=== PATIENT | female | born 1990 | race African-American/Black ===

== ENCOUNTER 2023-11-01 19:24 | Emergency (ER) | payer MEDICAID, OTHER ==
[2023-11-01 19:46] LABS: BASOPHILS PERCENT AUTO 0.3 % (0.0-1.0); EOSINOPHILS PERCENT AUTO 0.5 % (1.0-3.0); HEMATOCRIT 37.7 % (37.0-47.0); HEMOGLOBIN 12.3 g/dL (12.0-16.0); LYMPHOCYTES PERCENT AUTO 40.5 % (20.5-50.1); MEAN CORPUSCULAR HGB CONC 32.6 g/dL (33.0-35.0); MONOCYTES PERCENT AUTO 7.5 % (2-8); NEUTROPHILS PERCENT AUTO 51.2 % (42.2-75.2); PLATELET COUNT,PLT 381 10^3/uL (150-450); WHITE BLOOD CELL COUNT,WBC 11.1 10^3/uL (5.0-10.0)
[2023-11-01] MEDS: Ketorolac 30 MG/ML SDV IVPUSH ONE (19:52)
[2023-11-01 20:04] LABS: A/G RATIO 1.1; ALBUMIN 3.8 g/dL (3.4-5.0); ANION GAP 10.6 mEq/L (7-13); BILIRUBIN TOTAL 0.3 mg/dL (0.2-1.0); BUN/CREATININE RATIO 17.9 (No establ ref range); CALCIUM 8.3 mg/dL (8.5-10.1); CREATININE 0.84 mg/dL (0.55-1.02); EST CRCL DRUG DOSING (CG) 101.41 mL/min; POTASSIUM,K 3.6 mmol/L (3.5-5.1); PROTEIN TOTAL,TP 7.3 g/dL (6.4-8.2)
[2023-11-01] MEDS: LORazepam 1 MG Tab PO ONE (20:28)
== END 2023-11-01 20:40 | disposition home or self-care (01) ==
LOC: DL.ED 19:24
DX: R07.89 Other chest pain (principal); Z88.6 Allergy status to analgesic agent; Z79.899 Other long term (current) drug therapy; Z86.19 Personal history of other infectious and parasitic diseases; Z90.49 Acquired absence of other specified parts of digestive tract; V49.40XA Driver injured in collision with unspecified motor vehicles in traffic accident, initial encounter
CPT/HCPCS: 36415; 71045; 80053; 84484; 85025; 96374; 99285; A9270; J1885

== ENCOUNTER 2023-12-03 10:45 | Emergency (ER) | payer MEDICAID | END 2023-12-03 10:54 | disposition home or self-care (01) | LOC: DL.ED 10:45 | DX: F41.9 Anxiety disorder, unspecified (principal); R19.7 Diarrhea, unspecified; R11.10 Vomiting, unspecified; Z88.6 Allergy status to analgesic agent; Z79.899 Other long term (current) drug therapy; Z86.19 Personal history of other infectious and parasitic diseases; Z90.49 Acquired absence of other specified parts of digestive tract | CPT/HCPCS: 99283; 99285 ==

== ENCOUNTER 2024-03-30 09:31 | Emergency (ER) | payer MEDICAID, OTHER ==
[2024-03-30 10:33] LABS: AMPHETAMINES,URINE POSITIVE (NEGATIVE); BARBITURATES,URINE NEGATIVE (NEGATIVE); BENZODIAZEPINE,URINE POSITIVE (NEGATIVE); MDMA (ECSTASY), URINE NEGATIVE (NEGATIVE); METHADONE,URINE NEGATIVE (NEGATIVE); METHAMPHETAMINES,URINE NEGATIVE (NEGATIVE); OPIATES,URINE NEGATIVE (NEGATIVE); OXYCODONE,URINE NEGATIVE (NEGATIVE); PHENCYCLIDINE,URINE NEGATIVE (NEGATIVE); TCA,URINE NEGATIVE (NEGATIVE)
[2024-03-30] MEDS: hydrOXYzine HCl 25 MG Tab PO ONE (10:44)
[2024-03-30] MEDS: Acetaminophen 500 MG Tab PO ONE (11:30)
== END 2024-03-30 11:55 | disposition home or self-care (01) ==
LOC: DL.ED 09:31
DX: F41.9 Anxiety disorder, unspecified (principal); R07.89 Other chest pain; Z88.6 Allergy status to analgesic agent; Z79.899 Other long term (current) drug therapy; Z90.49 Acquired absence of other specified parts of digestive tract
CPT/HCPCS: 71046; 80305-QW; 81025; 93005; 93010; 99284; 99285; A9270-GY

== ENCOUNTER 2024-05-10 18:47 | Emergency (ER) | payer MEDICAID ==
[2024-05-10] MEDS ORDERED: Sodium Chloride 0.9% 10 ML Syringe FLUSH PRN (19:27)
[2024-05-10] MEDS: Take Home: Ondansetron 4 MG Tab.DIS, 5 Tab Pack PO ONE (19:47)
[2024-05-10] MEDS: Ondansetron 4 MG/2 ML SDV IVPUSH ONE (19:53)
[2024-05-10] MEDS: Lactated Ringers 1,000 ML IV ONE (19:54)
[2024-05-10 19:56] LABS: BASOPHILS PERCENT AUTO 0.2 % (0.0-1.0); EOSINOPHILS PERCENT AUTO 0.7 % (1.0-3.0); HEMATOCRIT 35.5 % (37.0-47.0); HEMOGLOBIN 11.6 g/dL (12.0-16.0); MEAN CORPUSCULAR HEMOGLOBIN 29.9 pg (27.0-34.0); MEAN CORPUSCULAR HGB CONC 32.7 g/dL (33.0-35.0); MEAN CORPUSCULAR VOLUME 91.5 fL (80-100); NEUTROPHILS PERCENT AUTO 61.1 % (42.2-75.2); PLATELET COUNT,PLT 379 10^3/uL (150-450); RED BLOOD CELL COUNT 3.88 10^6/uL (4.2-5.4); WHITE BLOOD CELL COUNT,WBC 9.8 10^3/uL (5.0-10.0)
[2024-05-10 20:17] LABS: A/G RATIO 1.1; ALBUMIN 3.8 g/dL (3.4-5.0); ANION GAP 10.1 mEq/L (7-13); BILIRUBIN TOTAL 0.2 mg/dL (0.2-1.0); BUN/CREATININE RATIO 14.9 (No establ ref range); CALCIUM 9.2 mg/dL (8.5-10.1); CREATININE 0.94 mg/dL (0.55-1.02); EST CRCL DRUG DOSING (CG) 92.91 mL/min; MAGNESIUM 1.8 mg/dL (1.8-2.4); POTASSIUM,K 4.1 mmol/L (3.5-5.1); PROTEIN TOTAL,TP 7.3 g/dL (6.4-8.2)
== END 2024-05-10 20:56 | disposition home or self-care (01) ==
LOC: DL.ED 18:47
DX: A05.9 Bacterial foodborne intoxication, unspecified (principal); J45.909 Unspecified asthma, uncomplicated; E66.9 Obesity, unspecified; Z68.41 Body mass index [BMI] 40.0-44.9, adult; Z90.49 Acquired absence of other specified parts of digestive tract; Z87.891 Personal history of nicotine dependence; Z79.899 Other long term (current) drug therapy; Z88.6 Allergy status to analgesic agent
CPT/HCPCS: 36415; 80053; 83735; 85025; 96361; 96374; 99283; 99284; J2405; J7120; Q0162

== ENCOUNTER 2024-06-21 13:10 | Emergency (ER) | payer OTHER ==
[2024-06-21] MEDS: Acetaminophen 500 MG Tab PO ONE (13:42)
[2024-06-21] MEDS: Ibuprofen 800 MG Tab PO ONE (13:42)
[2024-06-21] MEDS: Take Home: Amoxicillin 500 MG, 6 Cap Pack PO ONE (13:44)
== END 2024-06-21 13:52 | disposition home or self-care (01) ==
LOC: DL.ED 13:10
DX: H65.192 Other acute nonsuppurative otitis media, left ear (principal); Z90.49 Acquired absence of other specified parts of digestive tract; Z86.16 Personal history of COVID-19; E66.9 Obesity, unspecified; Z68.41 Body mass index [BMI] 40.0-44.9, adult; Z79.899 Other long term (current) drug therapy; Z88.8 Allergy status to other drugs, medicaments and biological substances
CPT/HCPCS: 99282; A9270

== ENCOUNTER 2024-08-25 00:04 | Emergency (ER) | payer OTHER ==
[2024-08-25] MEDS: Take Home: Ondansetron 4 MG Tab.DIS, 5 Tab Pack PO ONE (00:49)
== END 2024-08-25 01:04 | disposition home or self-care (01) ==
LOC: DL.ED 00:04
DX: A05.9 Bacterial foodborne intoxication, unspecified (principal); K52.9 Noninfective gastroenteritis and colitis, unspecified; F17.210 Nicotine dependence, cigarettes, uncomplicated; Z88.6 Allergy status to analgesic agent; Z79.899 Other long term (current) drug therapy; Z86.16 Personal history of COVID-19
CPT/HCPCS: 99283; Q0162

== ENCOUNTER 2024-09-13 17:32 | Emergency (ER) | payer OTHER ==
[2024-09-13] MEDS: Take Home: Promethazine 25 MG, 4 Tab Pack PO ONE (18:32)
== END 2024-09-13 18:38 | disposition home or self-care (01) ==
LOC: DL.ED 17:32
DX: R11.0 Nausea (principal); E66.9 Obesity, unspecified; Z86.16 Personal history of COVID-19; Z90.49 Acquired absence of other specified parts of digestive tract; Z79.899 Other long term (current) drug therapy; Z88.6 Allergy status to analgesic agent; Z68.41 Body mass index [BMI] 40.0-44.9, adult
CPT/HCPCS: 99283; A9270

== ENCOUNTER 2024-10-08 16:21 | Emergency (ER) | payer OTHER ==
[2024-10-08] MEDS: Ketorolac 30 MG/ML SDV IM ONE (16:55)
== END 2024-10-08 18:00 | disposition home or self-care (01) ==
LOC: DL.ED 16:21
DX: R07.81 Pleurodynia (principal); Z79.899 Other long term (current) drug therapy; Z88.6 Allergy status to analgesic agent; Z86.16 Personal history of COVID-19
CPT/HCPCS: 71046; 96372; 99282; 99283; J1885

== ENCOUNTER 2024-11-10 06:27 | Emergency (ER) | payer OTHER ==
[2024-11-10] MEDS: Ketorolac 30 MG/ML SDV IVPUSH ONE (08:13)
== END 2024-11-10 08:31 ==
LOC: DL.ED 06:27
DX: K08.89 Other specified disorders of teeth and supporting structures (principal); E66.9 Obesity, unspecified; Z68.42 Body mass index [BMI] 45.0-49.9, adult; J45.909 Unspecified asthma, uncomplicated; Z90.49 Acquired absence of other specified parts of digestive tract; Z86.16 Personal history of COVID-19; Z79.899 Other long term (current) drug therapy; Z88.8 Allergy status to other drugs, medicaments and biological substances
CPT/HCPCS: 96374; 99282; 99284-25; J1885

== ENCOUNTER 2024-12-09 15:09 | Emergency (ER) | payer OTHER ==
[2024-12-09] MEDS: Ketorolac 30 MG/ML SDV IM ONE (15:37)
== END 2024-12-09 15:47 | disposition home or self-care (01) ==
LOC: DL.ED 15:09
DX: M79.672 Pain in left foot (principal); G89.29 Other chronic pain; E66.9 Obesity, unspecified; Z88.5 Allergy status to narcotic agent; Z79.899 Other long term (current) drug therapy; Z90.49 Acquired absence of other specified parts of digestive tract; Z86.16 Personal history of COVID-19; Z68.43 Body mass index [BMI] 50.0-59.9, adult; X58.XXXA Exposure to other specified factors, initial encounter
CPT/HCPCS: 96372; 99283; J1885